=== PATIENT | female | born 1995 | race Caucasian/White ===

== ENCOUNTER 2024-09-21 13:30 | Emergency (ER) | payer BC, OTHER, SELFPAY ==
[2024-09-21 13:31] VITALS: BP 118/58
[2024-09-21 13:44] LABS: % Basophils 0.4 % (0-2); % Eosinophils 0.7 % (0-6); % Immature Granulocytes 0.3 % (0-0.5); % Lymphocytes 17.2 % (20.5-51.1); % Neutrophils 77.4 % (42.2-75.2); Absolute Eosinophils 0.1 10^3/uL (0-0.7); Absolute Lymphocytes 1.2 10^3/uL (1.2-3.4); Absolute Monocytes 0.3 10^3/uL (0.1-0.6); Absolute Neutrophils 5.4 10^3/uL (1.4-6.5); Hematocrit 39.7 % (37.0-47.0); Mean Corp Hgb Conc. 35.3 g/dL (33.0-37.0); Mean Corpuscular Hgb 30.6 pg (27.0-31.0); Mean Corpuscular Volume 86.9 fL (81.0-99.0); Mean Platelet Volume 11.2 fL (7.4-10.4); Nucleated Red Blood Cells % 0 %; Platelet Count 158 10^3/uL (130-400); Red Blood Cell Count 4.57 10^6/uL (4.20-5.40); Red Cell Dist. Width 12.2 % (11.5-14.5)
[2024-09-21 14:00] VITALS: BP 112/55
[2024-09-21 14:07] LABS: ALT (SGPT) 133 U/L (0-35); AST (SGOT) 81 U/L (14-36); Albumin 4.8 g/dl (3.5-5.0); Alkaline Phosphatase 98 U/L (38-126); Blood Urea Nitrogen 15 mg/dl (7-17); Calcium 9.6 mg/dl (8.4-10.2); Carbon Dioxide 27 mmol/L (22-30); Chloride 110 mmol/L (98-107); Glucose 92 mg/dl (70-99); Potassium 4.2 mmol/L (3.5-5.1); Sodium 141 mmol/L (135-145); Total Bilirubin 0.5 mg/dl (0.2-1.3); Total Protein 7.1 g/dl (6.3-8.2); eGFR > 60.00
--- NOTE | 2024-09-21 14:15 | ED.GENMED ---
History of Present Illness
General
Chief Complaint: Seizure
Source: patient and family (mother at bedside)
Exam Limitations: none
Time Seen by Provider: 09/21/24 14:13
Nursing documentation reviewed up to this point in time: agreed with
History of Present Illness
History of Present Illness:
29 yo female w special needs, hx seizures on Vimpat mom states she was found in the bathroom stall floor at her work program having seizure for about 3 minutes, by time EMS arrived pt reortedly back to base line, they gave intranasal Nayzilam 5 mg.
Mom states over this past holiday weekend she missed one dose of Vimpat and missed another dose today. Mom states pt is at her baseline.
Pt has contusion and abrasion upper right orbit from her glasses
Pt denies headache, points only to right eye to identify pain.
Denies neck, back or extremity pain
Past History
Past History
ED Past Medical History: GERD, Seizures and Psychiatric (Developmental delays, OCD, behavior disorder, oppositional defiant disorder)
ED Past Surgical History: Other (Bilateral myringotomy, eye muscle surgery)
Social History
Tobacco: Non-smoker
Alcohol: None
Personal: Single
Living: with family
Employment: Employed
Review of Systems
Review of Systems
Allergies reviewed?: Yes
All Other Systems: ROS reviewed and negative except as documented in HPI and ROS
Constitutional: Denies fever
EENT: Reports other (Scrape, swelling, bruising right upper orbit); Denies sore throat
Respiratory: Denies cough or trouble breathing
Cardiac: Denies chest pain
ABD/GI: Denies abdominal pain, nausea, vomiting, diarrhea or anorexia
: Denies dysuria or incontinence
Musculoskeletal: Reports no symptoms
Skin: Reports other
Neurological: Denies dizzy, headache, weakness or numbness
Phy Exam
Physical Exam
Physical Exam:
GENERAL: No acute distress. A&Ox3.
CONSTITUTIONAL: Afebrile.
EYES: clear, conjunctivae normal, EOMs intact. Mild swelling and ecchymosis right upper orbital area. Tender
ENMT: moist mucus membranes, Pharynx nl
RESPIRATORY: Regular respirations, nonlabored, lungs clear.
CARDIOVASCULAR: Regular rate and rhythm, no murmurs, no rubs.
GI: Soft, nontender, normal BS
MUSCULOSKELETAL: Moves with ease. Well perfused.
SKIN: Warm, dry, pink
PSYCH: Normal mood and affect. Well kept, interactive and appropriate
NEUROLOGIC: Awake, alert and oriented. No focal neurological deficits
Course
Orders/Labs/Results
Orders:
Orders
09/21/24 13:35
Electrocardiogram (*1) Urgent
Reason for Study: Other
Other Reason for Exam: seizure
EKG- Treatment ONCE
09/21/24 13:36
Complete Blood Count/With Diff Urgent
Comprehensive Metabolic Panel Urgent
09/21/24 14:24
Lacosamide [Vimpat] 100 mg PO NOW STA
09/21/24 14:25
CT Orbits W/o Iv Contrast Urgent
Comment:
Reason For Exam: seizure, right periorbitl swelling, contusion
Abnormal Lab Results
09/21/24
13:36
MPV 11.2 H fL
(7.4-10.4)
Neutrophils % 77.4 H %
(42.2-75.2)
Lymphocytes % 17.2 L %
(20.5-51.1)
Chloride 110 H mmol/L
(98-107)
AST 81 H U/L
(14-36)
ALT 133 H U/L
(0-35)
09/21/24 13:36
09/21/24 13:36
Vital Signs
Initial and Last Documented VS:
Initial Vital Signs
Temp Pulse Resp BP Pulse Ox
98.5 F 79 18 118/58 100
09/21/24 13:31 09/21/24 13:31 09/21/24 13:31 09/21/24 13:31 09/21/24 13:31
Last Documented Vital Signs
Temp Pulse Resp BP Pulse Ox
98.5 F 70 24 108/64 99
09/21/24 13:31 09/21/24 17:45 09/21/24 17:45 09/21/24 17:00 09/21/24 17:45
MDM/Problems Addressed
Differential Diagnosis Includes:
seizure due to missing anti seizure med, contusion vs fx right orbit
MDM/Problems Addressed:
29 yo female w special needs, hx seizures on Vimpat mom states she was found in the bathroom stall floor at her work program having seizure for about 3 minutes, by time EMS arrived pt reortedly back to base line, they gave intranasal Nayzilam 5 mg.
Mom states over this past holiday weekend she missed one dose of Vimpat and missed another dose today. Mom states pt is at her baseline.
Pt has contusion and abrasion upper right orbit from her glasses
Pt denies headache, points only to right eye to identify pain.
Denies neck, back or extremity pain
EKG: NSR
Pt given her dose of Vimpat
Remains at her baseline neurologically per mom.
CBC, CMP unremarkable, baseline mild elevation of liver enzymes (from medications)
Pt eating lunch
CT orbits: Radiology report read: No fractures
5:45 PM:
Patient has had no further seizure activity
Stable for discharge
Mom has notified [facility] of today's visit and the neurology nurse is to get back to her tomorrow for an appointment
*EKG
EKG Intrepretation Date: 09/21/24
Interpretation: normal
Heart Rate: 70
Rate: normal
Rhythm: sinus
[place]: normal axis
Interval: normal interval
QRS Pattern: normal QRS
Ischemia: no ischemia
*Critical Care Note
Total Time (30-74mins, 75-104mins- exclusive of procedures): Not Applicable
ED Attending Note
-
Portions of this chart may have been created with voice recognition software.� Occasional wrong word or��sound alike� substitutions may have occurred due to the inherent limitations of voice recognition software.
Discharge Plan
Departure
Patient Disposition: Home (Routine Discharge)
Date of Disposition: 09/21/24
Time of Disposition: 17:47
Patient with high blood pressure during this ER visit?: No
Condition: Good
Discharge Problem:
Seizure
Instructions: Seizures, Adult (DC)
Prescriptions:
No Action
albuterol sulfate 2.5 mg /3 mL (0.083 %) Solution For Nebulization
2.5 mg INHALATION Q4H PRN (Reason: asthma )
polyethylene glycol 3350 [Miralax] 17 gram Powder In Packet
17 g PO DAILY
melatonin 1.5 mg Tablet
1.5 mg PO HS
fluoxetine [Prozac] 20 mg Capsule
20 mg PO DAILY
Saccharomyces boulardii 250 mg Capsule
250 mg PO DAILY
dexmethylphenidate 5 mg Capsule,Er Biphasic 50-50
5 mg PO DAILY
cholecalciferol (vitamin D3) 25 mcg (1,000 unit) Tablet
25 mcg PO DAILY
lacosamide [Vimpat] 100 mg Tablet
100 mg PO BID
Nayzilam 5 mg/spray (0.1 mL) [place],Non-Aerosol
5 mg INTRANASAL ONCE
Referrals:
Raj Keller MD [Primary Care Provider, Family Practice]
Lavelle Ly MD [Family Provider, [facility]]
Activity Restrictions/Additional Instructions:
As we discussed, follow-up with [facility] as you have notified them of today's visit.
Interventions
Interventions:
*Risk Screen - Suicide Last Done: 09/21/24 13:54
*General Assessment Last Done: 09/21/24 13:43
*Neglect/Abuse Screening Last Done: 09/21/24 13:54
*ED COVID-19 Vaccine History Last Done: 09/21/24 13:43
*Nursing Disposition Last Done: 09/21/24 18:10
ED- Cardiac Assessment Last Done: 09/21/24 13:54
ED- Neurological Assessment Last Done: 09/21/24 13:54
ED- Pulmonary Assessment Last Done: 09/21/24 13:54
Discharge Date and Time
Discharge Date/Time: 09/21/24 18:13
Print Language: SLOVENIAN
[2024-09-21] MEDS: VIMPAT 100 MG PO (14:35)
[2024-09-21 15:00] VITALS: BP 111/60
[2024-09-21 16:00] VITALS: BP 113/60
[2024-09-21 17:00] VITALS: BP 108/64
== END 2024-09-21 18:13 | disposition home or self-care (01) ==
LOC: EMR 13:30
PROVIDERS: EMERGENCY PHYSICIAN Emergency Medicine; FAMILY PHYSICIAN Family Medicine; PRIMARYCARE PHYSICIAN Family Medicine
DX: R56.9 Unspecified convulsions (principal); K21.9 Gastro-esophageal reflux disease without esophagitis; R62.50 Unspecified lack of expected normal physiological development in childhood; F42.9 Obsessive-compulsive disorder, unspecified; F91.9 Conduct disorder, unspecified; F91.3 Oppositional defiant disorder
CPT/HCPCS: 99283; 70480; 80053; 85025; 93005